=== PATIENT | female | born 1990 | race Caucasian/White ===

== ENCOUNTER → 2017-06-22 | Emergency (ER) | payer OTHER ==
[2017-06-22 21:56] VITALS: BP 124/69; PULSE 105; TEMP 98; BMI 18.2
--- NOTE | 2017-06-22 21:56 | PDOC ---
Rapid Medical Evaluation Chief Complaint: Chest Pain Time Seen by Provider: 06/22/17 21:54 Medical Evaluation: 06/22/17 21:54 I have performed a brief in-person evaluation of this patient. The patient presents with a chief complaint of: R flank pain starting a few days ago, now chest pain, worse with inspiration, denies recent travel, denies OCP use, +extended sedentary periods Pertinent physical exam findings: well appearing , lungs ctab I have ordered the following: ekg, urine, labs The patient will proceed to the ED for further evaluation. Discharge Disposition - Diagnosis Chest pain - Referrals - Patient Instructions - Post Discharge Activity
--- NOTE | 2017-06-22 23:57 | PDOC ---
History of Present Illness - General Chief Complaint: Chest Pain Stated Complaint: CHEST PAIN Time Seen by Provider: 06/22/17 21:54 History Source: Patient - History of Present Illness Initial Comments: 06/22/17 11:24 26 year old female with right side pain radiating to chest. patient reports that chest pain is constant all day today. patient reports that she has been sitting up studying. denies fever/ chills, diaphoresis, NVD, abdominal pain, urinary symptoms. Past History - Past Medical History Allergies/Adverse Reactions: Allergies Allergy/AdvReac Type Severity Reaction Status Date / Time No Known Allergies Allergy Verified 06/22/17 21:56 Home Medications: Ambulatory Orders NK [No Known Home Medication] 06/23/17 - Suicide/Smoking/Psychosocial Hx Smoking History: Never smoked Have you smoked in the past 12 months: No Information on smoking cessation initiated: No Hx Alcohol Use: No Drug/Substance Use Hx: No Review of Systems - Review of Systems Able to Perform ROS?: Yes Is the patient limited Romansh proficient: No Constitutional: No: Symptoms Reported, See HPI, Chills, Diaphoresis, Fever, Loss of Appetite, Malaise, Night Sweats, Weakness, Weight Stable, Unintentional Wgt. Loss, Unexplained wgt Loss, Other Cardiac (ROS): Yes: Chest Pain *Physical Exam - Vital Signs Last Vital Signs Temp Pulse Resp BP Pulse Ox 98.0 F 105 H 16 124/69 100 06/22/17 21:53 06/22/17 21:53 06/22/17 21:53 06/22/17 21:53 06/22/17 21:53 ED Treatment Course - LABORATORY CBC & Chemistry Diagram: 06/23/17 00:27 06/23/17 00:27 - ADDITIONAL ORDERS Additional order review: Laboratory Results 06/23/17 06/23/17 06/23/17 00:43 00:27 00:27 D-Dimer Sodium 141 Potassium 3.8 Chloride 109 H Carbon Dioxide 24 Anion Gap 8 BUN 7 Creatinine 0.6 Creat Clearance w eGFR > 60 Random Glucose 97 Calcium 9.1 Total Bilirubin 0.4 AST 13 L ALT 20 Alkaline Phosphatase 51 Total Protein 7.6 Albumin 4.3 TSH 3.22 Urine Color Ltyellow Urine Appearance Clear Urine pH 6.0 Ur Specific [place] 1.010 Urine Protein Negative Urine Glucose (UA) Negative Urine Ketones Negative Urine Blood Negative Urine Nitrite Negative Urine Bilirubin Negative Urine Urobilinogen Negative Ur Leukocyte Esterase Negative Urine HCG, Qual Negative 06/23/17 00:27 D-Dimer 210 Sodium Potassium Chloride Carbon Dioxide Anion Gap BUN Creatinine Creat Clearance w eGFR Random Glucose Calcium Total Bilirubin AST ALT Alkaline Phosphatase Total Protein Albumin TSH Urine Color Urine Appearance Urine pH Ur Specific [place] Urine Protein Urine Glucose (UA) Urine Ketones Urine Blood Urine Nitrite Urine Bilirubin Urine Urobilinogen Ur Leukocyte Esterase Urine HCG, Qual 06/23/17 00:27 RBC 3.86 MCV 95.4 MCHC 33.9 RDW 12.2 MPV 8.4 Neutrophils % 72.3 Lymphocytes % 22.2 Monocytes % 4.0 Eosinophils % 1.2 Basophils % 0.3 - RADIOLOGY Radiology Studies Ordered: Category Date Time Status CHEST PA & LAT [RAD] Stat Radiology 06/23/17 01:53 Ordered Medical Decision Making - Medical Decision Making 06/23/17 02:29labs wnl. patient pending chest xray patient was noted to be not in the room. *DC/Admit/Observation/Transfer Diagnosis at time of Disposition: Chest pain Qualifiers: Chest pain type: other chest pain Qualified Code(s): R07.89 - Other chest pain - Discharge Dispostion Disposition: ELOPED - Referrals Referrals: Dougie Bagley [Primary Care Provider] - - Patient Instructions - Post Discharge Activity
--- NOTE | 2017-06-23 00:10 | PDOC ---
*Physical Exam - Vital Signs Last Vital Signs Temp Pulse Resp BP Pulse Ox 98.0 F 105 H 16 124/69 100 06/22/17 21:53 06/22/17 21:53 06/22/17 21:53 06/22/17 21:53 06/22/17 21:53 Medical Decision Making - Medical Decision Making 06/23/17 00:10 agree with care from EUGENIO [facility] *DC/Admit/Observation/Transfer Diagnosis at time of Disposition: Chest pain - Referrals Referrals: Dougie Bagley [Primary Care Provider] - - Patient Instructions - Post Discharge Activity
[2017-06-23 00:34] LABS: BASO % 0.3 % (0-2.0); EOS % 1.2 % (0-4.5); HEMATOCRIT 36.8 % (32.4-45.2); HEMOGLOBIN 12.5 GM/dL (10.7-15.3); LYMPH % 22.2 % (8-40); MCH 32.3 pg (25.7-33.7); MCHC 33.9 g/dl (32.0-36.0); MEAN CELL VOLUME 95.4 fl (80-96); MEAN PLT VOLUME 8.4 fl (7.5-11.1); NEUT % 72.3 % (42.8-82.8); PLATELET COUNT 226 K/MM3 (134-434); RBC 3.86 M/mm3 (3.60-5.2); RDW 12.2 % (11.6-15.6); WHITE BLOOD COUNT 11.1 K/mm3 (4.0-10.0)
[2017-06-23 00:54] LABS: URINE APPEARANCE CLEAR; URINE BILIRUBIN NEGATIVE (<2.0 mg/dL); URINE BLOOD NEGATIVE (NEGATIVE); URINE COLOR LTYELLOW; URINE GLUCOSE (UA) NEGATIVE (NEGATIVE); URINE KETONE NEGATIVE (NEGATIVE); URINE LEUK ESTERASE NEGATIVE (NEGATIVE); URINE NITRITE NEGATIVE (NEGATIVE); URINE PROTEIN NEGATIVE (NEGATIVE); URINE UROBILINOGEN NEGATIVE mg/dL (0.2-1.0)
[2017-06-23 00:57] LABS: HCG,QUALITATIVE URINE NEGATIVE
[2017-06-23 01:03] LABS: ALBUMIN 4.3 g/dl (3.4-5.0); ALK PHOS 51 U/L (45-117); ANION GAP 8 (8-16); BILIRUBIN,TOTAL 0.4 mg/dL (0.2-1.0); BLOOD UREA NITROGEN 7 mg/dL (7-18); CALCIUM 9.1 mg/dL (8.5-10.1); CHLORIDE 109 mmol/L (98-107); CO2 24 mmol/L (21-32); CREATININE 0.6 mg/dL (0.55-1.02); GLUCOSE,RANDOM 97 mg/dL (74-106); POTASSIUM 3.8 mmol/L (3.5-5.1); SGOT/AST 13 U/L (15-37); SGPT/ALT 20 U/L (12-78); SODIUM 141 mmol/L (136-145); TOT PROT 7.6 g/dl (6.4-8.2)
--- NOTE | 2017-06-23 11:23 | EKG ---
Test Reason : Blood Pressure : / mmHG Vent. Rate : 112 BPM Atrial Rate : 112 BPM P-R Int : 128 ms QRS Dur : 086 ms QT Int : 338 ms P-R-T Axes : 074 085 068 degrees QTc Int : 461 ms SINUS TACHYCARDIA BIATRIAL ENLARGEMENT ABNORMAL ECG NO PREVIOUS ECGS AVAILABLE Confirmed by MAGGIE MAO, SILVINO ([id number]) on 06/23/2017 11:22:46 AM Referred By: Confirmed By:SILVINO SERRANO MD
== END | disposition left against medical advice (07) ==
LOC: JER 21:42
DX: R07.89 Other chest pain (principal)
CPT/HCPCS: 36415; 80053; 81003; 84443; 84703; 85025; 85379; 87086; 93005; 93010; 99281-25

== ENCOUNTER 2018-03-12 22:21 | Emergency (ER) | payer OTHER ==
[2018-03-12 22:26] VITALS: BP 135/89; PULSE 86; TEMP 97.9; BMI 21.1
--- NOTE | 2018-03-12 22:29 | PDOC ---
History of Present Illness - General History Source: Patient Exam Limitations: No Limitations - History of Present Illness Initial Comments: 03/12/18 22:31 The patient is a 27 year old female with no past medical history here today for evaluation of dizziness. The patient reports that she was eating dinner with her family when she suddenly felt dizzy, her vision went blurry, and her hearing became muffled. She reports that this episode was moderate in severity, lasted over 30 minutes, and had no alleviating or aggravating factors but her hearing and vision returned. She notes that she has had multiple episodes of dizziness before but has never lost her vision and hearing before. She describes the episodes of dizziness as a falling sensation. The patient also notes episodes of feeling like she is leaning when walking. She reports left calf pain that started 2 days ago after she flew home from [place]. Patient denies headache. Denies fever, chills. Denies chest pain, shortness of breath. Denies nausea, vomiting, diarrhea, abdominal pain. Denies lower extremity edema. Allergies: NKA PCP: none reported <Magen Aguilar - Last Filed: 03/12/18 22:46> <Alden Ramesh - Last Filed: 03/12/18 23:38> - General Chief Complaint: Pain Stated Complaint: DIZZINESS Time Seen by Provider: 03/12/18 22:24 Past History <Magen Aguilar - Last Filed: 03/12/18 22:46> - Past Medical History COPD: No Other medical history: Pt denies - Suicide/Smoking/Psychosocial Hx Smoking History: Never smoked Have you smoked in the past 12 months: No Information on smoking cessation initiated: No Hx Alcohol Use: No Drug/Substance Use Hx: No <Alden Ramesh - Last Filed: 03/12/18 23:38> - Past Medical History Allergies/Adverse Reactions: Allergies Allergy/AdvReac Type Severity Reaction Status Date / Time No Known Allergies Allergy Verified 03/12/18 22:22 Home Medications: Ambulatory Orders NK [No Known Home Medication] 06/23/17 Review of Systems - Review of Systems Able to Perform ROS?: Yes Comments:: 03/12/18 22:32 A complete review of 10 out of 10 review of systems is taken and is negative apart from what is previously mentioned below and in the HPI. <Magen Aguilar - Last Filed: 03/12/18 22:46> *Physical Exam - Vital Signs Last Vital Signs Temp Pulse Resp BP Pulse Ox 97.9 F 86 20 135/89 100 03/12/18 22:24 03/12/18 22:24 03/12/18 22:24 03/12/18 22:24 03/12/18 22:24 - Physical Exam Comments: 03/12/18 22:33 Vitals: Triage vital signs reviewed General Appearance: No acute distress, well nourished, well developed Head: Atraumatic Eyes: Pupils equal reactive round, extraocular movement intact Neck: Supple; No nuchal rigidity Chest Wall: Nontender Cardiac: Regular rate and rhythm, no murmurs, no rubs, no gallops Lungs: Clear to auscultation bilateral, good air movement bilaterally Extremities: Full range of motion to all extremities, no cyanosis, clubbing, or edema Skin: Warm and dry, no rashes or lesions, no rash, no petechiae Neuro: AOX3; Cranial Nerves 2-12 grossly intact, Strength intact to all extremities, Sensation intact to all extremities Psych: Normal mood, normal affect <Magen Aguilar - Last Filed: 03/12/18 22:46> - Vital Signs Last Vital Signs Temp Pulse Resp BP Pulse Ox 97.9 F 86 20 135/89 100 03/12/18 22:24 03/12/18 22:24 03/12/18 22:24 03/12/18 22:24 03/12/18 22:24 <Alden Ramesh - Last Filed: 03/12/18 23:38> Moderate Sedation - Procedure Monitoring Vital Signs: Procedure Monitoring Vital Signs Temperature 97.9 F 03/12/18 22:24 Pulse Rate 86 03/12/18 22:24 Respiratory Rate 20 03/12/18 22:24 Blood Pressure 135/89 03/12/18 22:24 O2 Sat by Pulse Oximetry (%) 100 03/12/18 22:24 <Magen Aguilar - Last Filed: 03/12/18 22:46> - Procedure Monitoring Vital Signs: Procedure Monitoring Vital Signs Temperature 97.9 F 03/12/18 22:24 Pulse Rate 86 03/12/18 22:24 Respiratory Rate 20 03/12/18 22:24 Blood Pressure 135/89 03/12/18 22:24 O2 Sat by Pulse Oximetry (%) 100 03/12/18 22:24 <Alden Ramesh - Last Filed: 03/12/18 23:38> ED Treatment Course - LABORATORY CBC & Chemistry Diagram: 03/12/18 22:40 03/12/18 22:40 - RADIOLOGY Radiology Studies Ordered: Category Date Time Status HEAD CT WITHOUT CONTRAST [CT] Stat CT Scan 03/12/18 22:26 Ordered DUPLEX VASCUL US-1 LEG [US] Stat Ultrasound 03/12/18 22:25 Taken <Alden Ramesh - Last Filed: 03/12/18 23:38> Medical Decision Making - Medical Decision Making 03/12/18 22:32 The patient is a 27 year old female with no past medical history here today for evaluation of dizziness. <Magen Aguilar - Last Filed: 03/12/18 22:46> - Medical Decision Making 27 years old no past medical history presents to the emergency department with episode of lightheadedness decreased hearing and vision for approximately 20 minutes and 30 minutes while eating dinner this evening. History of similar episodes of dizziness Patient also states she has a subacute history of occasional issues with gait and steadiness. Here in the emergency department her neurologic examination including cerebellar examination was nonfocal Her laboratory analysis was unremarkable. Her EKG demonstrated normal sinus rhythm with no ST elevations and no T-wave inversions no evidence of WPW, Brugada, prolonged QT Her head CT demonstrated no acute abnormalities She complained of some calf pain after her recent trip to [place] there is no calf swelling on examination but a duplex was ordered which demonstrated no DVT Patient does have a history of anxiety she did receive an upsetting phone call prior to the event which may explain some of the symptomatology in light of and otherwise normal examination and workup We will refer the patient to follow up with neurology as well as our clinic at [facility] Findings, the need for follow-up and strict return instructions discussed with patient. <Alden Ramesh - Last Filed: 03/12/18 23:38> *DC/Admit/Observation/Transfer - Attestations Scribe Attestion: 03/12/18 22:33 Documentation prepared by PAXTON Payan, acting as medical assembly for Alden Ramesh MD. <Magen Aguilar - Last Filed: 03/12/18 22:46> - Discharge Dispostion Decision to Admit order: No <Alden Ramesh - Last Filed: 03/12/18 23:38> Diagnosis at time of Disposition: Lightheaded - Discharge Dispostion Disposition: HOME - Referrals Referrals: Anselmo Edwards MD [Staff Physician] - [facility] [Provider Group] - Patient Instructions Printed Discharge Instructions: DI for Dizziness-Nonvertigo Additional Instructions: Drink plenty of fluids. When standing up stand up slowly. Follow-up within 2-3 days with neurology as well as our clinic. Return to ED for any severe worsening symptoms or for any concerns.
[2018-03-12 22:44] LABS: HCG,QUALITATIVE URINE Negative
[2018-03-12] MEDS ORDERED: MECLIZINE HCL 25 MG TABLET (FP) PO ONE (22:45)
[2018-03-12] MEDS ORDERED: SODIUM CHLORIDE 0.9% 1000 ML INFUS.BAG IV ONE (22:45)
[2018-03-12 22:48] LABS: URINE APPEARANCE Clear; URINE BILIRUBIN Negative (NEGATIVE); URINE COLOR Yellow; URINE GLUCOSE (UA) Negative (NEGATIVE); URINE KETONE Negative (NEGATIVE); URINE LEUK ESTERASE Negative (NEGATIVE); URINE NITRITE Negative (NEGATIVE); URINE PROTEIN Negative (NEGATIVE); URINE UROBILINOGEN 0.2 (0.2-1.0)
[2018-03-12 22:56] LABS: BASO % 0.6 % (0-2.0); HEMATOCRIT 39.3 % (32.4-45.2); HEMOGLOBIN 13.1 GM/dl (10.7-15.3); LYMPH % 45.2 % (8-40); MCH 32.3 pg (25.7-33.7); MCHC 33.2 g/dl (32.0-36.0); MEAN CELL VOLUME 97.1 fl (80-96); MEAN PLT VOLUME 8.9 fl (7.5-11.1); NEUT % 44.2 % (42.8-82.8); PLATELET COUNT 244 K/MM3 (134-434); RBC 4.05 M/mm3 (3.60-5.2); RDW 12.2 % (11.6-15.6)
[2018-03-12 23:15] LABS: ALBUMIN 4.5 g/dl (3.5-5.0); ALK PHOS 56 U/L (32-92); ANION GAP 10 MMOL/L (8-16); BILIRUBIN,TOTAL 0.6 mg/dl (0.2-1.0); BLOOD UREA NITROGEN 5 mg/dl (7-18); CALCIUM 9.4 mg/dl (8.4-10.2); CHLORIDE 100 mmol/L (98-107); CO2 28 mmol/L (22-28); CREATININE 0.6 mg/dl (0.6-1.3); GLUCOSE,RANDOM 103 mg/dl (74-106); POTASSIUM 4.3 mmol/L (3.5-5.1); SGOT/AST 23 U/L (10-42); SGPT/ALT 16 U/L (10-40); SODIUM 138 mmol/L (136-145); TOT PROT 7.4 g/dl (6.4-8.3)
--- NOTE | 2018-03-13 09:44 | EKG ---
Test Reason : Blood Pressure : / mmHG Vent. Rate : 073 BPM Atrial Rate : 073 BPM P-R Int : 118 ms QRS Dur : 096 ms QT Int : 384 ms P-R-T Axes : 048 080 071 degrees QTc Int : 423 ms NORMAL SINUS RHYTHM NORMAL ECG WHEN COMPARED WITH ECG OF 22-JUN-2017 21:48, VENT. RATE HAS DECREASED BY 39 BPM Confirmed by JAYSON GUILLEN MD ([id number]) on 03/13/2018 9:44:18 AM Referred By: ERICH Confirmed By:JAYSON GUILLEN MD
== END 2018-03-12 23:55 | disposition home or self-care (01) ==
LOC: FER 22:21
DX: R42 Dizziness and giddiness (principal)
CPT/HCPCS: 36415; 70450-TC; 80053; 81003; 84703; 85025; 87086; 93005; 93971-TC; 99285-25